=== PATIENT | female | born 1980 | race Asian ===

== ENCOUNTER 2017-10-04 08:20 | Inpatient (IN) | payer SELFPAY ==
[~2017-10-04] VITALS: Ht 160 cm; Wt 68.0 kg
[2017-10-05 01:15] VITALS: BP 115/62
[2017-10-05] MEDS ORDERED: LACTATED RINGERS 1,000 ML IV SCH (01:31)
[2017-10-05] MEDS ORDERED: IBUPROFEN 800 MG TAB PO PRN ×2 (01:35→06:10)
[2017-10-05] MEDS ORDERED: PREN-546 PO (01:37)
[2017-10-05] MEDS ORDERED: SYN.05 PO (01:37)
[2017-10-05] MEDS ORDERED: FERR-252 PO (01:37)
[2017-10-05 03:34] LABS: ALBUMIN 2.7 g/dL (3.4-5.0); ANION GAP 12.7 (8-16); CARBON DIOXIDE 23.1 mmol/L (21-32); CREATININE 0.6 mg/dL (0.6-1.3); POTASSIUM 3.8 mmol/L (3.5-5.1); TOTAL BILIRUBIN 0.3 mg/dL (0.0-1.0)
[2017-10-05 03:36] LABS: BASOPHILS % (AUTO) 0.5 % (0.0-2.0); EOSINOPHILS # (AUTO) 0.1 K/uL (0-0.4); HEMATOCRIT 34.7 % (36-48); HEMOGLOBIN 11.9 g/dL (12.0-16.0); LYMPHOCYTES # (AUTO) 1.6 K/uL (2.5-16.5); LYMPHOCYTES % (AUTO) 22.9 % (20.5-51.1); MEAN CORPUSCULAR HEMOGLOBIN 33 pg (27-31); MEAN CORPUSCULAR HGB CONC 34 g/dL (33-37); MONOCYTES # (AUTO) 0.7 K/uL (0.8-1.0); MONOCYTES % (AUTO) 9.4 % (1.7-9.3); NEUTROPHILS # (AUTO) 4.6 K/uL (1.8-7.7); NEUTROPHILS % (AUTO) 66.2 % (42.2-75.2); PLATELET COUNT (AUTO) 247 K/uL (140-450); RED BLOOD CELL COUNT(AUTO) 3.61 MIL/uL (4.20-5.40); RED CELL DISTRIBUTION WIDTH 13.5 % (11.6-13.7)
[2017-10-05 03:51] LABS: APPEARANCE,URINE CLEAR (CLEAR); BILIRUBIN,URINE NEGATIVE (NEGATIVE); BLOOD, URINE NEGATIVE (NEGATIVE); COLOR,URINE YELLOW (YELLOW); LEUKOCYTE ESTERASE ,URINE NEGATIVE (NEGATIVE); NITRITE, URINE NEGATIVE (NEGATIVE); UGLUCOSE NEGATIVE (NEGATIVE)
[2017-10-05 04:20] LABS: RBC,URINE 0-5 (RARE) /HPF (0-5); WBC,URINE 0-5 (RARE) /HPF (0-5)
[2017-10-05] MEDS ORDERED: ceFAZolin 1,000 MG VIAL ONE (05:26)
[2017-10-05] MEDS ORDERED: METHYLERGONOVINE 0.2 MG/ML AMP ONE (05:59)
[2017-10-05] MEDS ORDERED: TRIAMCINOLONE 40 MG/ML 5ML VIAL ONE (05:59)
[2017-10-05] MEDS ORDERED: OXYTOCIN 10 UNITS/ML VIAL ONE (05:59)
[2017-10-05] MEDS ORDERED: ONDANSETRON 4 MG/2 ML VIAL ONE (06:05)
[2017-10-05] MEDS ORDERED: OXYTOCIN 20 UNITS in LACTATED RINGERS 1,000 ML IV SCH (06:09)
[2017-10-05] MEDS ORDERED: METHYLERGONOVINE 0.2 MG/ML AMP IM PRN (06:10)
[2017-10-05] MEDS ORDERED: TEMAZEPAM 15 MG CAP PO PRN (06:10)
[2017-10-05] MEDS ORDERED: SIMETHICONE 80 MG TAB.CHEW PO PRN (06:10)
[2017-10-05] MEDS ORDERED: HYDROcodone/APAP 5/325 MG 1 TAB TAB PO PRN (06:10)
[2017-10-05] MEDS ORDERED: oxyCODONE/APAP 5/325 MG 1 TAB TAB PO PRN (06:10)
[2017-10-05] MEDS ORDERED: TRIMETHOBENZAMIDE 200 MG/2 ML SYR IM PRN (06:10)
[2017-10-05] MEDS ORDERED: MEASLES, MUMPS, AND RUBELLA 1 VIAL SQVAC PRN (06:10)
[2017-10-05] MEDS ORDERED: BUPIVACAINE/DEXT 0.75% SPINAL 2 ML AMP INJ ONE (06:12)
[2017-10-05] MEDS ORDERED: MORPHINE PRES FREE 2 MG/2 ML 2 mL UD SYRINGE ONE (06:12)
[2017-10-05] MEDS ORDERED: diphenhydrAMINE 50 MG/ML VIAL ONE ×2 (06:48→16:46)
[2017-10-05] MEDS ORDERED: OXYTOCIN 20 UNITS/LR PREMIX 1,000 ML IV ONE (06:49)
[2017-10-05] MEDS ORDERED: diphenhydrAMINE 50 MG/ML VIAL IVP PRN (07:30)
--- NOTE | 2017-10-05 08:06 | NUR ---
PATIENT HAS BEEN SCREENED AND CATEGORIZED LOW NUTRITION RISK. PATIENT WILL BE SEEN WITHIN 7 DAYS OF ADMISSION. 10/11/[address]
[2017-10-05 14:06] LABS: RAPID PLASMA REAGIN NON-REACTIVE (Non Reactiv)
[2017-10-05] MEDS: DOCUSATE SOD/SENNA 50/8.6 MG 1 TAB PO SCH (20:58)
[2017-10-06] MEDS ORDERED: OXYTOCIN 20 UNITS/LR PREMIX 1,000 ML IV ONE (00:10)
[2017-10-06] MEDS ORDERED: KETOROLAC 30 MG/ML VIAL IVP SCH (08:15)
[2017-10-06] MEDS ORDERED: KETOROLAC 30 MG/ML VIAL ONE (08:28)
[2017-10-06 08:59] LABS: BASOPHILS % (AUTO) 0.1 % (0.0-2.0); EOSINOPHILS % (AUTO) 0.1 % (0.0-4.0); HEMATOCRIT 33.7 % (36-48); HEMOGLOBIN 11.4 g/dL (12.0-16.0); LYMPHOCYTES % (AUTO) 9.3 % (20.5-51.1); MEAN CORPUSCULAR HEMOGLOBIN 33 pg (27-31); MEAN CORPUSCULAR HGB CONC 34 g/dL (33-37); MEAN CORPUSCULAR VOLUME 97.6 fL (80-94); MONOCYTES # (AUTO) 0.7 K/uL (0.8-1.0); MONOCYTES % (AUTO) 6.7 % (1.7-9.3); NEUTROPHILS # (AUTO) 9.3 K/uL (1.8-7.7); NEUTROPHILS % (AUTO) 83.8 % (42.2-75.2); PLATELET COUNT (AUTO) 225 K/uL (140-450); RED BLOOD CELL COUNT(AUTO) 3.45 MIL/uL (4.20-5.40); RED CELL DISTRIBUTION WIDTH 13.8 % (11.6-13.7); WHITE BLOOD COUNT (AUTO) 11.1 K/uL (4.8-10.8)
[2017-10-06] MEDS: DOCUSATE SOD/SENNA 50/8.6 MG 1 TAB PO SCH (20:58)
== END 2017-10-07 14:10 | disposition home or self-care (01) | DRG 766 ==
LOC: MLD 10-05 00:18 → MFCC 10-05 07:40
PROVIDERS: ADMIT Obstetrics & Gynecology; ATTEND Obstetrics & Gynecology
PROC: 10D00Z1 Extraction of Products of Conception, Low, Open Approach (ICD-10-PCS; principal; 2017-10-05 06:00)
DX: O34.211 Maternal care for low transverse scar from previous cesarean delivery (principal); Z37.0 Single live birth; Z3A.39 39 weeks gestation of pregnancy; E03.9 Hypothyroidism, unspecified; O99.284 Endocrine, nutritional and metabolic diseases complicating childbirth
CPT/HCPCS: 36415; 80053; 81001; 85025; 86592; 86886; 86900; 86901; 87086; 90707; 90715; J0690; J1200; J1885; J2210; J2270; J2405; J2590; J3301; J3490; J7060; J7120; Q0163